=== PATIENT | male | born 1960 | race Caucasian/White ===

== ENCOUNTER → 2023-02-12 | Outpatient (CLI) | payer MEDICARE ==
--- NOTE | 2023-02-12 12:42 | XR ---
EXAMINATION TYPE: XR cervical spine comp DATE OF EXAM: 02/12/2023 COMPARISON: NONE HISTORY: Pain TECHNIQUE: Four views are submitted. FINDINGS: The odontoid is intact. There are no compression deformities. The prevertebral soft tissue structur es are within normal limits. Extensive postsurgical changes seen in the soft tissue clips seen throu ghout the soft tissue compartments and neck. Cortical screws appears situated within their respective vertebral segments. Anterior fixation plate appears to be immediately apposed to the anterior margin of the vertebral segments. There is mild reduced mineralization of the C6 vertebral segment relative to the other segments. Mult ilevel facet arthropathy is seen and there is slight grade 1 anterolisthesis of C3 on C4, C4 and C5, and C6 on C7. Calcifications soft tissue the neck is compatible with atherosclerotic changes of the c arotid arteries. IMPRESSION: 1. Postoperative change. There is some reduced mineralization in the C6 vertebral segment. Recommend follow-up MRI for further evaluation. A Yellow level critical message alert has been initiated for Raymond Boyd MD via the [employer] Critical Results System on 02/12/2023 12:39 PM. This message alert has been sent to Raymond Boyd MD via the preferences provided by the clinician for the receipt of Radiology Critical Findings. Mess age ID [id number].
== END | disposition home or self-care (01) ==
LOC: RADXRMAIN 12:03
PROVIDERS: ATTEND Physical Medicine & Rehabilitation
DX: M54.2 Cervicalgia (principal); Z98.890 Other specified postprocedural states
CPT/HCPCS: 72050

== ENCOUNTER 2024-10-16 06:26 | Day surgery (SDC) | payer MEDICARE ==
[2024-10-13 16:02] VITALS: BMI 30.9
[2024-10-16 06:58] VITALS: TEMP 98.2
[2024-10-16] MEDS: LACTATED RINGERS 1,000 ML IV SCH (07:06)
[2024-10-16] MEDS: IV FLUID CONTINUATION 1,000 ML IV ONE (07:07)
[2024-10-16] MEDS ORDERED: LIDOCAINE 1% INJ 10MG/ML (20 ML MDV) ONE (07:20)
[2024-10-16] MEDS ORDERED: PROPOFOL 10 MG/ML 20 ML VIAL IV ONE (07:20)
--- NOTE | 2024-10-16 07:42 | P.PCN ---
Date of Procedure: 10/16/24 Procedure(s) Performed: Brief history: Patient is a pleasant 64-year-old white male scheduled for an elective upper endoscopy as well as colonoscopy as a part of evaluation of intermittent dysphagia to solids that has been progressively getting worse for the last 2 years duration and history of colon polyps. Procedure performed: Esophagogastroduodenoscopy biopsy and dilation Colonoscopy with cold snare polypectomy Preoperative diagnosis: Progressive dysphagia to solids for the last 2 years duration History of colon polyps Anesthesia: MAC Procedure: After informed consent was obtained from the patient was brought into the endoscopy unit and IV sedation was administered by anesthesia under continuous monitoring. Initially upper endoscopy was done. The Olympus GF 160 video endoscope was inserted inserted into the mouth and esophagus intubated without any difficulty and was gradually advanced into the stomach and duodenum and carefully examined. The bulb and second part of the duodenum appeared normal. The scope was then withdrawn into the stomach adequately insufflated with air and upon careful examination the antrum and body, cardia and fundus appeared normal. The scope was then withdrawn into the esophagus. Small hiatal hernia noted. The GE junction was located at 40 cm to the incisors. There was a tight distal esophageal stricture identified and this was dilated using 10 to 12 mm TTS balloon in a sequential fashion for 30 seconds. There was mucosal erythema and erosions identified in the distal esophagus consistent with LA grade B reflux esophagitis. Biopsies were done from the distal esophagus. Rest of the esophagus appeared normal. Patient tolerated the procedure well. At this time the patient continued to remain sedation. Initial digital rectal examination was normal. Olympus CF 160 video colonoscope was then inserted into the rectum and gradually advanced to the cecum without any difficulty. Careful examination was performed as the scope was gradually being withdrawn. The prep was excellent. The cecum, appeared normal. In the ascending colon there was a 6 mm polyp that was removed by cold snare polypectomy. In the transverse colon there was a 5 mm polyp removed by cold snare polypectomy. Rest of the ascending colon, transverse colon, descending colon, normal-appearing; there was a 5 mm polyp that was removed by cold snare polypectomy. Rest of the sigmoid colon and rectum appeared normal. Retroflexion was performed in the rectum and no lesions were noted. Patient tolerated the procedure well. Impression: 1. Upper endoscopy revealed tight distal esophageal stricture status post balloon dilation using 10 to 12 mm TTS balloon, LA grade B reflux esophagitis and small hiatal hernia 2. Colonoscopy revealed: 6 mm ascending colon polyp status post cold snare polypectomy 5 mm transverse colon polyp status post polypectomy 3 mm sigmoid colon polyp status post snare polypectomy Recommendations: Findings of this examination were discussed with the patient as well as his family. He was advised to be on a clear liquid diet. Start omeprazole 20 mg daily and follow antireflux measures. The biopsy reveals adenoma he can have repeat colonoscopy in 5 years.
[2024-10-16 08:02] VITALS: BP 125/72; PULSE 78
[2024-10-16 08:31] VITALS: RESP 18
== END 2024-10-16 08:37 | disposition home or self-care (01) ==
LOC: ORWHC2ENDO 06:26
PROVIDERS: ATTEND Internal Medicine Gastroenterology
DX: D12.2 Benign neoplasm of ascending colon (principal); D12.3 Benign neoplasm of transverse colon; D12.5 Benign neoplasm of sigmoid colon; K21.00 Gastro-esophageal reflux disease with esophagitis, without bleeding; K44.9 Diaphragmatic hernia without obstruction or gangrene; J44.9 Chronic obstructive pulmonary disease, unspecified; F17.210 Nicotine dependence, cigarettes, uncomplicated; Z79.899 Other long term (current) drug therapy
CPT/HCPCS: 45385; 43239; 43249; J2003; J2704; C1726; 88305

== ENCOUNTER → 2025-04-20 | Outpatient (CLI) | payer MEDICARE ==
--- NOTE | 2025-04-20 13:27 | FL ---
EXAMINATION TYPE: FL UGI air w small bowel DATE OF EXAM: 04/20/2025 12:23 PM COMPARISON: None CLINICAL INDICATION:Male, 65 years old with history of R10.84 ABD PAIN; TECHNIQUE: The procedure was explained and patient history elicited. All patient questions were ans wered prior to start of procedure. A supervisor ornamental ironworking radiograph of the abdomen was also reviewed. Multiple flu oroscopic spot images of the esophagus, stomach and duodenum were obtained following ingestion of liq uid barium and EZ-gas crystals. After the completion of the upper gastrointestinal examination, a de tailed small bowel examination was performed. The patient was asked to ingest additional liquid ofe um and incremental frontal abdominal radiographs were then taken until contrast was visualized in the cecum. DAP: NOT REPORTED [id number] FINDINGS: Postsurgical changes of the mandible and neck noted with hardware in place and intact. The esophagus appears unremarkable without evidence of focal stricture, ulceration or abnormal outpouchin g. The scattered tertiary contractions identified. Mild retention of contrast in the distal esophagu s after each swallow. Small gastroesophageal reflux was seen when the patient was instructed to bear down. Small hiatal hernia is present and the patient was laying down. The stomach and duodenum demo nstrate a normal course and contour. There is no evidence of focal gastric or duodenal ulceration, s tricture, or abnormal outpouching. Small bowel mucosal folds are felt to be within normal limits. Detailed small bowel examination: Contrast is seen extending from the duodenojejunal junction into the cecum after two hours, which is within the expected time period. The small bowel follows normal distribution and contour without any evidence of extraluminal or intraluminal irregularity. There is no displacement of bowel loops or e xtraluminal extravasation of contrast material. IMPRESSION: 1. Mild esophageal dysmotility. 2. Small esophageal reflux. 3. Small hiatal hernia. 4. Normal detailed small bowel examination. [facility], , 04/20/2025 1:25 PM
== END | disposition home or self-care (01) ==
LOC: RADFLMAIN 08:58
PROVIDERS: ATTEND Internal Medicine Gastroenterology
DX: K21.9 Gastro-esophageal reflux disease without esophagitis (principal); K22.4 Dyskinesia of esophagus; K44.9 Diaphragmatic hernia without obstruction or gangrene
CPT/HCPCS: 74240; 74248